=== PATIENT | male | born 1985 | race African-American/Black ===

== ENCOUNTER 2022-08-21 03:39 | Emergency (ER) | payer SELFPAY ==
[~2022-08-21] VITALS: Ht 182.9 cm; Wt 105.0 kg
[2022-08-21] MEDS ORDERED: TETANUS, DIPHTHERIA, PERTUSSIS VAC/PF 0.5ML (>10YR OLD) IM ONE (04:00)
[2022-08-21] MEDS ORDERED: LIDOCAINE HCL/PF 1% 10 MG/ML 5ML VIAL INFIL ONE (05:15)
[2022-08-21] MEDS ORDERED: BACITRACIN ZINC OINT UDPKT TOP ONE (05:15)
[2022-08-21] MEDS ORDERED: IBUP-2029 PO (06:07)
[2022-08-21] MEDS ORDERED: CYCL5TAB PO (06:07)
[2022-08-21 06:13] VITALS: BP 112/78
== END 2022-08-21 06:15 | disposition home or self-care (01) ==
LOC: ER 03:39
DX: S01.511A Laceration without foreign body of lip, initial encounter (principal); S00.83XA Contusion of other part of head, initial encounter; V49.49XA Driver injured in collision with other motor vehicles in traffic accident, initial encounter; V47.5XXA Car driver injured in collision with fixed or stationary object in traffic accident, initial encounter; Y93.89 Activity, other specified; Y92.488 Other paved roadways as the place of occurrence of the external cause
CPT/HCPCS: 40650; 70450; 71045; 90471; 90715; 99284; J3490; Z7610